=== PATIENT | male | born 1975 | race Caucasian/White ===

== ENCOUNTER 2019-07-26 10:59 | Emergency (ER) | payer MEDICAID, OTHER ==
[~2019-07-26] VITALS: Ht 193 cm; Wt 95.5 kg
[~2019-07-26 10:59] MED LIST: IBUP-1574 PO; TRAM50TA2 PO
[2019-07-26 11:02] VITALS: BP 152/77
--- NOTE | 2019-07-26 11:43 | NUR ---
pt lft without the d/c paper work .pt asked where is he going? pt said 'i am leaving".pt left without any treatment or discharge instruction.
[2019-07-26] MEDS ORDERED: AMOX-580 PO (12:01)
[2019-07-26] MEDS ORDERED: TRAM50TA2 PO (12:01)
== END 2019-07-26 11:45 | disposition home or self-care (01) ==
LOC: ER 11:00
DX: K04.7 Periapical abscess without sinus (principal); E11.9 Type 2 diabetes mellitus without complications; F15.90 Other stimulant use, unspecified, uncomplicated; Z98.890 Other specified postprocedural states; Z88.6 Allergy status to analgesic agent; Z79.899 Other long term (current) drug therapy
CPT/HCPCS: 99283

== ENCOUNTER 2019-08-05 21:10 | Emergency (ER) | payer SELFPAY ==
[~2019-08-05] VITALS: Ht 193 cm; Wt 100.0 kg
[~2019-08-05 21:10] MED LIST changes: +AMOX-580 PO
[2019-08-05] MEDS ORDERED: normal saline 1000ML IV soln IVB ONE (22:00)
[2019-08-05] MEDS ORDERED: LORazepam 2 mg/ml vial IV ONE (22:00)
[2019-08-05 22:34] LABS: BASOPHILS % (AUTO) 0.4 % (0-1); EOSINOPHILS # (AUTO) 0.1 X10'3 (0-0.9); EOSINOPHILS % (AUTO) 0.8 % (0-6); HEMATOCRIT 40.8 % (42.0-52.0); HEMOGLOBIN 14.2 g/dl (14.0-17.9); LYMPHOCYTES # (AUTO) 3.3 X10'3 (1.1-4.8); MEAN CORPUSCULAR HEMOGLOBIN 34.2 PG (27.0-31.0); MEAN CORPUSCULAR HGB CONC 34.9 g/dL (33.0-36.5); MEAN CORPUSCULAR VOLUME 97.8 FL (78-98); MEAN PLATELET VOLUME 6.7 FL (7.4-10.4); MONOCYTES # (AUTO) 0.7 X10'3 (0-0.9); MONOCYTES % (AUTO) 7.8 % (2-12); PLATELET COUNT 308 X10'3 (140-440); RED BLOOD COUNT 4.17 X10'6 (4.70-6.10); RED CELL DISTRIBUTION WIDTH 12.9 % (11.5-14.5); WHITE BLOOD COUNT 9.1 X10'3 (4.5-11.0)
[2019-08-05 22:41] LABS: ALANINE AMINOTRANSFERASE 27 U/L (12-78); ALBUMIN 3.4 G/DL (3.4-5.0); ALBUMIN/GLOBULIN RATIO 0.9 (1.1-1.5); ALKALINE PHOSPHATASE 89 IU/L (46-116); ANION GAP 6 (8-16); ASPARTATE AMINO TRANSFERASE 15 U/L (10-37); BILIRUBIN,TOTAL 0.5 MG/DL (0.1-1.0); BLOOD UREA NITROGEN 5 MG/DL (7-18); BUN/CREATININE RATIO 5.7 (5.4-32.0); CALCIUM 8.5 MG/DL (8.5-10.1); CHLORIDE 103 MMOL/L (99-107); CREATININE 0.87 MG/DL (0.60-1.10); GLUCOSE 194 MG/DL (70-104); SODIUM 139 MMOL/L (135-145); TOTAL PROTEIN 7.4 G/DL (6.4-8.2); eGFR > 90 ML/MIN
--- NOTE | 2019-08-05 22:56 | NUR ---
ATTEMPTED TO OBTAIN UA. PT STATES "WHY CANT YOU JUST CHECK MY BLOOD." EDUCATION PT WHY WE NEED UA, PT STATES "THATS STUPID." WILL CONTINUE TO MONITOR AND ATTEMPT UA
[2019-08-05 23:31] VITALS: BP 135/78
== END 2019-08-05 23:33 | disposition home or self-care (01) ==
LOC: ER 21:11
DX: F15.10 Other stimulant abuse, uncomplicated (principal); R51 Headache; M54.2 Cervicalgia; E11.9 Type 2 diabetes mellitus without complications; Z98.890 Other specified postprocedural states; Z88.6 Allergy status to analgesic agent; Z79.899 Other long term (current) drug therapy
CPT/HCPCS: 36415; 71045; 80053; 85025; 93005; 96374; 99284; J2060; J7030

== ENCOUNTER 2019-11-30 09:28 | Emergency (ER) | payer SELFPAY ==
[~2019-11-30] VITALS: Ht 193 cm; Wt 86.4 kg
[~2019-11-30 09:28] MED LIST changes: -AMOX-580 PO
[2019-11-30 09:46] VITALS: BP 137/83
[2019-11-30] MEDS ORDERED: iohexol 300mg/ml 100ml inj. ONE (09:51)
--- NOTE | 2019-11-30 10:36 | NUR ---
TO CT VIA WHEELCHAIR ACCOMPANIED BY [employer] AND TECH
--- NOTE | 2019-11-30 10:39 | NUR ---
PT TOOK OFF RUNNING WHEN THEY GOT OUTSIDE TO CT SCAN. ANDREA AND LATOYA JOHNSTON IN PURSUANT
--- NOTE | 2019-11-30 10:57 | NUR ---
PT WAS CAPTURED BY LATOYA AND ANDREA AND NOW IN CT SCAN VIA RICHY
--- NOTE | 2019-11-30 10:59 | NUR ---
PT BACK IN ROOM IN STABLE CONDITION.
== END 2019-11-30 11:40 ==
LOC: ER 09:28
DX: R41.82 Altered mental status, unspecified (principal); E11.9 Type 2 diabetes mellitus without complications; F15.90 Other stimulant use, unspecified, uncomplicated; R94.31 Abnormal electrocardiogram [ECG] [EKG]; Z88.6 Allergy status to analgesic agent; V49.88XA Car occupant (driver) (passenger) injured in other specified transport accidents, initial encounter; Y93.89 Activity, other specified; Y92.413 State road as the place of occurrence of the external cause; Y99.9 Unspecified external cause status
CPT/HCPCS: 70450; 71260; 72125; 74177; 93005; 99285; Q9967